=== PATIENT | female | born 1990 | race Caucasian/White ===

== ENCOUNTER 2016-12-15 01:03 | Emergency (ER) | payer SELFPAY ==
[2016-12-15] MEDS ORDERED: AMOXICILLIN TRIHYDRATE 500 MG CAPSULE PO ONE (02:36)
--- NOTE | 2016-12-15 02:38 | ER Document Report ---
ED ENT - General Chief Complaint: Sore Throat Stated Complaint: SORE THROAT,EAR PAIN Time seen by provider: 02:36 Mode of Arrival: Ambulatory Information source: Patient - HPI Patient complains to provider of: Ear problem, Throat problem Onset: Other - 3 days Onset/Duration: Persistent Quality of pain: Achy Severity: Moderate Pain Level: 3 Location of pain: Ears, Throat Associated symptoms: Congestion, Cough, Ear pain, Sore throat Similar symptoms previously: No Recently seen / treated by doctor: No Notes: Patient is a 25-year-old female who presents to the emergency room for complaints of migraine headache, sore throat, ear pain 3 days, she reports some nausea associated with it but no fever - Related Data Allergies/Adverse Reactions: No Known Allergies Allergy (Unverified 12/15/16 01:13) Past Medical History - General Information source: Patient - Social History Smoking Status: Never Smoker Family History: Reviewed & Not Pertinent Patient has suicidal ideation: No Patient has homicidal ideation: No Renal/ Medical History: Denies: Hx Peritoneal Dialysis Review of Systems - Review of Systems Constitutional: No symptoms reported EENT: See HPI Cardiovascular: No symptoms reported Respiratory: No symptoms reported Gastrointestinal: Nausea Genitourinary: No symptoms reported Female Genitourinary: No symptoms reported Musculoskeletal: No symptoms reported Skin: No symptoms reported Hematologic/Lymphatic: No symptoms reported Neurological/Psychological: No symptoms reported -: Yes All other systems reviewed and negative Physical Exam - Vital signs Vitals: Temp Pulse Resp BP Pulse Ox 98.2 F 63 16 109/72 100 12/15/16 01:11 12/15/16 01:11 12/15/16 01:11 12/15/16 01:11 12/15/16 01:11 Interpretation: Normal - General General appearance: Appears well, Alert In distress: None - HEENT Head: Normocephalic, Atraumatic Eyes: Normal Conjunctiva: Normal Extraocular movements intact: Yes Eyelashes: Normal Pupils: PERRL Ears: Normal External canal: Normal Tympanic membrane: Bulging - Right side, Injected Sinus: Normal Nasal: Normal Mouth/Lips: Normal Mucous membranes: Normal Pharynx: Erythema. No: Exudate Neck: Normal - Respiratory Respiratory status: No respiratory distress Chest status: Nontender Breath sounds: Normal Chest palpation: Normal - Cardiovascular Rhythm: Regular Heart sounds: Normal auscultation Murmur: No - Abdominal Inspection: Normal - Back Back: Normal - Extremities General upper extremity: Normal inspection, Nontender, Normal color, Normal ROM , Normal temperature General lower extremity: Normal inspection, Nontender, Normal color, Normal ROM , Normal temperature, Normal weight bearing. No: Lillie's sign - Neurological Neuro grossly intact: Yes Cognition: Normal Orientation: AAOx4 Lidia Coma Scale Eye Opening: Spontaneous [place] Coma Scale Verbal: Oriented [place] Coma Scale Motor: Obeys Commands Lidia Coma Scale Total: 15 Speech: Normal Motor strength normal: LUE, RUE, LLE, RLE Sensory: Normal - Psychological Associated symptoms: Normal affect, Normal mood - Skin Skin Temperature: Warm Skin Moisture: Dry Skin Color: Normal Course - Vital Signs Vital signs: Temp Pulse Resp BP Pulse Ox 98.4 F 60 16 102/68 100 12/15/16 02:56 12/15/16 02:56 12/15/16 02:56 12/15/16 02:56 12/15/16 01:11 Discharge - Discharge Clinical Impression: Otitis media Qualifiers: Otitis media type: serous Laterality: right Chronicity: acute Recurrence: not specified as recurrent Qualified Code(s): H65.01 - Acute serous otitis media, right ear Condition: Stable Disposition: HOME, SELF-CARE Instructions: Otitis Media ([facility]) Additional Instructions: Follow up with your primary care provider in one to 2 days. Return to the emergency room immediately if symptoms worsen or any additional concerns. Prescriptions: Amoxicillin Trihydrate [Amoxil 500 mg Capsule] 500 mg PO TID #30 cap Forms: Return to Work Referrals: FRANCISCO CRUZ PA [Primary Care Provider] - Follow up as needed
[2016-12-15 03:01] VITALS: BP 102/68
== END 2016-12-15 03:02 | disposition home or self-care (01) ==
LOC: ER 01:03
DX: H65.01 Acute serous otitis media, right ear (principal); J02.9 Acute pharyngitis, unspecified; G43.909 Migraine, unspecified, not intractable, without status migrainosus; R11.0 Nausea
CPT/HCPCS: 99282

== ENCOUNTER 2019-02-27 13:07 | Emergency (ER) | payer BC ==
--- NOTE | 2019-02-27 13:35 | ER Document Report ---
HPI - HPI Patient complains to provider of: toe pain Time Seen by Provider: 02/27/19 13:13 Onset/Duration: Sudden Quality of pain: Achy Severity: Moderate Pain Level: 3 Context: Patient presents to the emergency department with left fifth digit toe pain. Patient reports she was running the house barefoot and hit her toe on side of the dryer. Patient has not taken anything for pain. Toe angulated laterally good cap refill Associated Symptoms: None Exacerbated by: Walking Relieved by: Denies Similar symptoms previously: No Recently seen / treated by doctor: No - REPRODUCTIVE Reproductive: DENIES: : Past Medical History - General Information source: Patient Last Menstrual Period: iud - Social History Smoking Status: Unknown if Ever Smoked Lives with: Family Family History: Reviewed & Not Pertinent Patient has suicidal ideation: No Patient has homicidal ideation: No Neurological Medical History: Reports: Hx Migraine Renal/ Medical History: Denies: Hx Peritoneal Dialysis Surgical Hx: Negative Vertical Provider Document - CONSTITUTIONAL Agree With Documented VS: Yes Exam Limitations: No Limitations General Appearance: WD/WN, No Apparent Distress - INFECTION CONTROL TRAVEL OUTSIDE OF THE [place] IN LAST 30 DAYS: No - HEENT HEENT: Atraumatic, Normocephalic - NECK Neck: Supple - RESPIRATORY Respiratory: No Respiratory Distress - MUSCULOSKELETAL/EXTREMETIES Musculoskeletal/Extremeties: Tender - Left fifth digit angulated laterally, good cap refill, good pedal pulse - NEURO Level of Consciousness: Awake, Alert, Appropriate - DERM Integumentary: Warm, Dry Course - Re-evaluation Re-evalutation: 02/27/19 14:26 left 5th digit with oblique diaphyseal fracture in the proximal phalanx of 5th digit with 4 mm lateral displacement and impaction. I attempted to reduce toe without block, pt reports pain, requested numbing toe. digital block completed without complications, toe re-x-rayed. 5th digit fracture reduced to near anatomic position 02/27/19 14:47 good cap refill, clifford tape and post op shoe placed. pt denies pain. Patient educated about importance of protecting toe for possible displacement again if she hits toe again. Patient also instructed on signs and symptoms of infection importance of follow-up with primary care orthopedics this week for recheck. She verbalized understanding to all instructions. 02/27/19 15:05 pt ambulating out the daughter reports she is starting to feel her toe. Again instructed on Motrin rest ice elevated and the importance of protecting the toe she verbalized understanding to all instructions. Dictation of this chart was performed using voice recognition software; therefore, there may be some unintended grammatical errors. 02/27/19 19:56 Patient contacted reports her toe is hurting more now especially when she walks.encouraged to rest/elevate toe, monitor for swelling, color. she verbalized understanding. - Vital Signs Vital signs: Temp Pulse Resp BP Pulse Ox 98.8 F 57 L 14 136/78 H 97 02/27/19 13:18 02/27/19 13:18 02/27/19 13:18 02/27/19 13:18 02/27/19 13:18 - Diagnostic Test Radiology reviewed: Image reviewed, Reports reviewed - EXAM DESCRIPTION: TOE LEFT COMPLETED DATE/TIME: 02/27/2019 1:27 pm REASON FOR STUDY: ran into dryer COMPARISON: None. EXAM PARAMETERS: NUMBER OF VIEWS: Three views. TECHNIQUE: AP, lateral and oblique radiographic images acquired of the left foot. LIMITATIONS: None. FINDINGS: MINERALIZATION: Normal. BONES: Oblique diaphyseal fracture in the proximal phalanx of the left 5th digit with 4 mm lateral displacement and impaction.. JOINTS: No effusion. SOFT TISSUES: No significant soft tissue swelling. No radiopaque foreign body. OTHER: No other significant finding. IMPRESSION: Oblique diaphyseal fracture in the proximal phalanx of the left 5th digit with 4 mm lateral displacement and impaction. Procedures - Joint Reduction/Fracture Care Left Toe 5th digit Consent obtained: Yes - verbal Conscious sedation: No Pre-procedure NV exam: Yes - good cap malina Fracture: Closed Post-procedure NV exam: Yes Reduction attempts: 1 Complications: No Notes: 02/27/19 14:11 digital toe block utlizing bupivicaine 0.25% 1.5 ml injected after retraction, pt reported relief of pain, toe reduced Discharge - Discharge Clinical Impression: Toe pain, left, fractured left toe Condition: Stable Disposition: HOME, SELF-CARE Instructions: Clifford Taping (toes) (COUNTS INCLUDE 234 BEDS AT THE [facility]), Post-Op Shoe ([facility]), Fractured Toe (COUNTS INCLUDE 234 BEDS AT THE [facility]) Additional Instructions: *You have been evaluated for left toe pain, displaced fractured left 5th toe *Rest/Ice/Elevate, maintain the clifford tape, use the post op shoe for comfort *Follow up with orthopedics within one week *Follow up with your primary care provider within one week *Take Tylenol or motrin as indicated for pain *Return to ED for worsening condition, changes, needs Forms: Elevated Blood Pressure Referrals: FRANCISCO CURZ PA [NO LOCAL MD] - Follow up in 3-5 days
--- NOTE | 2019-02-27 13:41 | RADIOLOGY REPORT (SQ) ---
EXAM DESCRIPTION: TOE LEFT COMPLETED DATE/TIME: 02/27/2019 1:27 pm REASON FOR STUDY: ran into dryer COMPARISON: None. EXAM PARAMETERS: NUMBER OF VIEWS: Three views. TECHNIQUE: AP, lateral and oblique radiographic images acquired of the left foot. LIMITATIONS: None. FINDINGS: MINERALIZATION: Normal. BONES: Oblique diaphyseal fracture in the proximal phalanx of the left 5th digit with 4 mm lateral di splacement and impaction.. JOINTS: No effusion. SOFT TISSUES: No significant soft tissue swelling. No radiopaque foreign body. OTHER: No other significant finding. IMPRESSION: Oblique diaphyseal fracture in the proximal phalanx of the left 5th digit with 4 mm late ral displacement and impaction. TECHNICAL DOCUMENTATION: JOB ID: [id number] [id number] 2010 [employer]- All Rights Reserved Reading location - IP/workstation name: [email or web address]
[2019-02-27] MEDS ORDERED: BUPIVACAINE HCL 0.25 % INJ/PF (2.5 MG/1 ML) 30 ML VIAL INJ ONE (13:54)
--- NOTE | 2019-02-27 14:49 | RADIOLOGY REPORT (SQ) ---
EXAM DESCRIPTION: TOE LEFT COMPLETED DATE/TIME: 02/27/2019 2:40 pm REASON FOR STUDY: fx reduced, COMPARISON: Earlier exam same date EXAM PARAMETERS: NUMBER OF VIEWS: Three views. TECHNIQUE: AP, lateral and oblique radiographic images acquired of the left foot. LIMITATIONS: None. FINDINGS: MINERALIZATION: Normal. BONES: Proximal phalanx 5th digit fracture reduced to near anatomic position. JOINTS: No effusion. SOFT TISSUES: Mild soft tissue swelling. No radiopaque foreign body. OTHER: No other significant finding. IMPRESSION: Proximal phalanx 5th digit fracture reduced to near anatomic position. TECHNICAL DOCUMENTATION: JOB ID: [id number] [id number] 2010 [employer]- All Rights Reserved Reading location - IP/workstation name: [email or web address]
[2019-02-27 14:56] VITALS: BP 112/70
== END 2019-02-27 15:03 | disposition home or self-care (01) ==
LOC: ER 13:07
DX: S92.512A Displaced fracture of proximal phalanx of left lesser toe(s), initial encounter for closed fracture (principal); W22.09XA Striking against other stationary object, initial encounter; Y92.009 Unspecified place in unspecified non-institutional (private) residence as the place of occurrence of the external cause
CPT/HCPCS: 99283